=== PATIENT | female | born 1970 | race Two or more races ===

== ENCOUNTER → 2022-12-11 | Emergency (ER) | payer OTHER ==
[~2022-12-11] VITALS: Ht 157.5 cm; Wt 71.7 kg
[~2022-12-11] MED LIST: AMOX-CLAV 875-1 EACH PO
== END | disposition home or self-care (01) ==
LOC: ER 12:48
DX: S81.811A Laceration without foreign body, right lower leg, initial encounter (principal); W45.8XXA Other foreign body or object entering through skin, initial encounter; Y93.9 Activity, unspecified; Y92.89 Other specified places as the place of occurrence of the external cause; Y99.9 Unspecified external cause status